=== PATIENT | male | born 1985 | race Caucasian/White ===

== ENCOUNTER 2023-01-24 05:18 | Emergency (ER) | payer BC, SELFPAY ==
--- NOTE | ~2023-01-24 | CT_ITS ---
EXAMINATION: CT abdomen pelvis wo con DATE: 01/24/2023 06:18 INDICATION: Flank pain. Nausea and vomiting. History kidney stones. TECHNIQUE: Computed tomography (CT) of the abdomen and pelvis was performed without intravenous contr ast. Automated exposure control and iterative reconstruction technique were employed. Exam dose: 187 0.21 mGy-cm total exam DLP. COMPARISON: None. FINDINGS: Minimal atelectasis in the lower lobes, right greater than left. Normal heart size. No pericardial or pleural effusion. The liver, gallbladder, bile ducts, spleen, pancreas, pancreatic duct, and adrenal glands are unremar kable. There is a nonobstructing pinpoint lower pole right renal calculus. There is an approximately 2.6 mm proximal right ureteral calculus with mild right hydroureteronephros is and minimal right peripelvic and proximal periureteral stranding. No other urinary tract calculus or hydroureteronephrosis. No renal mass lesion is evident on this limited noncontrast examination. The urinary bladder and pros antunez gland are unremarkable. Normal caliber of the abdominal aorta. No intraperitoneal or retroperitoneal or pelvic mass lesion or adenopathy or ascites is detected. Normal appendix. No bowel obstruction or free air. Small fat-containing left inguinal hernia. Small fat-containing umbilical hernia. Bilateral L3 pars interarticularis defects with associated grade 1 anterolisthesis at L3-4. Severe degenerative disc disease at L3-4. Moderately severe degenerative disc disease at L5-S1. No suspicious osteolytic or osteoblastic lesions. IMPRESSION: 2.6 mm proximal right ureteral calculus with mild right hydroureteronephrosis Pinpoint nonobstructing lower pole right renal calculus Normal appendix Bilateral L3 pars interarticularis defects with associated grade 1 anterolisthesis at L3-4 Severe degenerative disease at L3-4, moderately severe degenerative disc disease at L5-S1 Reviewed, dictated and finalized at [facility]. Reviewed, dictated and finalized at [facility]. IMPRESSION: 2.6 mm proximal right ureteral calculus with mild right hydrourete ronephrosis Pinpoint nonobstructing lower pole right renal calculus Normal appendix Bilateral L3 pars interarticularis defects with associated grade 1 anterolisthe sis at L3-4 Severe degenerative disease at L3-4, moderately severe degenerative disc diseas e at L5-S1
[2023-01-24 05:27] VITALS: BP 178/106; PULSE 64; RESP 18; TEMP 36.4; O2SAT 99
[2023-01-24] MEDS: ONDANSETRON INJ 4 MG/2 ML VIAL IV PUSH (05:51)
[2023-01-24] MEDS: SODIUM CHLORIDE 0.9% IV 1,000 ML 999 ML IV CONT (05:51)
[2023-01-24] MEDS: MORPHINE SULFATE (*CRX) 4 MG/ML INJ IV PUSH (05:52)
[2023-01-24 06:00] VITALS: BP 169/84; O2SAT 94
[2023-01-24 06:08] LABS: Basophils Absolute Auto 0.1 K/mm3 (0.0-0.1); Basophils Percent Auto 0.9 % (0.2-1.2); Eosinophils Absolute Auto 0.3 K/mm3 (0-0.3); Eosinophils Percent Auto 4.2 % (0-4.4); Hematocrit 45.5 % (42.0-52.0); Hemoglobin 15.9 g/dL (14.0-18.0); Immature Granulocyte Absolute 0.03 K/mm3 (0.00-0.031); Immature Granulocyte Percent A 0.4 % (0-0.5); Lymphocytes Absolute Auto 2.43 K/mm3 (0.9-3.2); Lymphocytes Percent Auto 32.9 % (18.3-44.2); Mean Corpuscular HGB Conc 34.9 g/dl (32-36); Mean Corpuscular Hemoglobin 31.4 pg (26-34); Mean Corpuscular Volume 89.9 fl (80-100); Mean Platelet Volume 10.3 fl (7.4-10.4); Monocytes Absolute Auto 0.7 K/mm3 (0.1-0.6); Monocytes Percent Auto 9.5 % (2.6-8.5); Neutrophils Absolute Auto 3.8 K/mm3 (1.3-6.7); Neutrophils Percent Auto 52.1 % (45.5-73.1); Platelet Count Result 302 k/mm3 (150-375); Red Blood Count 5.06 M/mm3 (4.6-6.20); Red Cell Distribution Width 12.4 % (11.5-14.5); White Blood Count 7.4 K/mm3 (4.5-10.0)
[2023-01-24 06:16] LABS: Alanine Aminotransferase 118 U/L (6-50); Albumin Level 4.9 g/dL (3.5-5.1); Alkaline Phosphatase 81 U/L (38-126); Anion Gap 9 mmol/L (8-16); Appearance Urine Clear (Clear); Aspartate Amino Transferase 65 U/L (17-59); Bacteria Urine None Seen /hpf; Bilirubin Urine Negative (Negative); Bilirubin,Total 0.9 mg/dL (0.2-1.3); Blood Urea Nitrogen 19 mg/dL (9-20); Blood Urine 3+ (Negative); Calcium 10.4 mg/dL (8.4-10.2); Carbon Dioxide 28 mmol/L (22-30); Chloride 102 mmol/L (98-107); Color Urine Dark Yellow (Yellow); Estimated CRCL calculation 133 ml/min; Estimated Glomerular Filt Rate > 60; Glucose 117 mg/dL (65-110); Glucose Urine UA Negative (Negative); Ketones Urine Trace mg/dL (Negative); Leukocyte Esterase Ur Trace LEU/UL (Negative); Lipase 119 U/L (23-300); Nitrate Urine Negative (Negative); Non Pathogenic Casts 0-2; Potassium 3.6 mmol/L (3.4-5.0); Protein Urine Trace mg/dL (Negative); RBC Urine >100 /hpf (0-2); Sodium 139 mmol/L (137-145); Specific Grav Ur 1.025 (1.001-1.035); Squamous Epithelial Cell Urine None seen /hpf (Few); pH Urine 5.5 (5.0-9.0)
--- NOTE | 2023-01-24 06:17 | ED.GENADULT ---
HPI - General Adult General Chief complaint: Urogenital-Male <Pj Coreas MD - Last Filed: 01/24/23 06:26> Stated complaint: Kidney stone? <Pj Coreas MD - Last Filed: 01/24/23 06:26> Time Seen by Provider: 01/24/23 05:40 <Pj Coreas MD - Last Filed: 01/24/23 06:26> History of Present Illness HPI narrative: Patient is a 37-year-old gentleman who presents the emergency department with chief complaint of right-sided flank pain. Patient reports that started having pain in the right flank area this evening reports it radiates to the right lower quadrant the patient reports the pain is sharp reports he is unable to get comfortable reports it feels similar to whenever he had a kidney stone before in the past. The previous kidney stones he did require surgical intervention to remove the stone patient denies fever chills <Pj Coreas MD - Last Filed: 01/24/23 06:26> Related Data Allergies/adverse reactions: Allergies Allergy/AdvReac Type Severity Reaction Status Date / Time Sulfa (Sulfonamide AdvReac Rash Verified 01/24/23 05:47 Antibiotics) <Pj Coreas MD - Last Filed: 01/24/23 06:26> Review of Systems Review of Systems: A 10 system review of systems was completed on the patient and is negative except for what is stated in the HPI. Nursing and ancillary documentation was reviewed. <Pj Coreas MD - Last Filed: 01/24/23 06:26> Exam Narrative: GENERAL: Well-appearing, well-nourished, and in no acute distress. HEAD: Normocephalic, atraumatic. EYES: PERRLA and EOMI. ENT: Nares clear, no rhinorrhea or epistaxis. Mucous membranes moist. NECK: Supple. CHEST: Clear to auscultation. No respiratory distress. HEART: Regular rate and rhythm. No murmur heard. Normal peripheral pulses. ABDOMEN: Soft, nontender, nondistended, normal active bowel sounds. EXTREMITIES: Normal range of motion. No edema. SKIN: Warm, dry, no rash. NEURO: No focal deficits. Alert and oriented x3. PSYCH: Normal mood and affect. <Pj Coreas MD - Last Filed: 01/24/23 06:26> Course Reevaluation(s) Reevaluation #1: Patient care was signed out to me by Dr. Coreas. Patient is a 37-year-old male presenting with right flank pain. Patient does have a prior history of kidney stone. At time of signout CT scan was pending. Patient was afebrile with no leukocytosis and a stable hemoglobin. Patient's chemistries had no significant abnormalities. UA did show greater than [address] scan did show a 2.7 cm stone in the proximal right ureter. On reevaluation patient is resting comfortably. Patient and family were updated of the results of the imaging and the plan for follow-up. All questions and concerns were addressed. <Manjeet Tavera MD - Last Filed: 01/24/23 18:06> Vital Signs Vital signs: Vital Signs Temperature 97.6 F 01/24/23 05:27 Pulse Rate 64 01/24/23 05:27 Respiratory Rate 18 01/24/23 05:27 Blood Pressure 178/106 H 01/24/23 05:27 Pulse Oximetry 99 01/24/23 05:27 Oxygen Delivery Room Air 01/24/23 05:27 Temperature 97.6 F 01/24/23 05:27 Pulse Rate 84 01/24/23 09:54 Respiratory Rate 19 01/24/23 09:54 Blood Pressure 131/58 L 01/24/23 09:54 Pulse Oximetry 97 01/24/23 09:54 Oxygen Delivery Room Air 01/24/23 05:27 <Pj Coreas MD - Last Filed: 01/24/23 06:26> Vital Signs Temperature 97.6 F 01/24/23 05:27 Pulse Rate 64 01/24/23 05:27 Respiratory Rate 18 01/24/23 05:27 Blood Pressure 178/106 H 01/24/23 05:27 Pulse Oximetry 99 01/24/23 05:27 Oxygen Delivery Room Air 01/24/23 05:27 Temperature 97.6 F 01/24/23 05:27 Pulse Rate 84 01/24/23 09:54 Respiratory Rate 19 01/24/23 09:54 Blood Pressure 131/58 L 01/24/23 09:54 Pulse Oximetry 97 01/24/23 09:54 Oxygen Delivery Room Air 01/24/23 05:27
[2023-01-24 06:21] LABS: Add Urine Microscopic? YES
[2023-01-24] MEDS: PROCHLORPERAZINE EDISYLATE 10 MG/2 ML VIAL IV PUSH (06:39)
[2023-01-24] MEDS: HYDROmorphone HCL INJ (*CRX) 1 MG/ML SYR IV PUSH (06:45)
--- NOTE | 2023-01-24 06:51 | PC.NURSE ---
Pt used the call light to notify nurse of increased pain and increase in vomiting. EDP was notified and antiemetic and Dilaudid was given.
[2023-01-24 07:39] VITALS: BP 168/101; PULSE 60; RESP 19; O2SAT 93
[2023-01-24 07:40] VITALS: BP 168/101; O2SAT 92
[2023-01-24 09:54] VITALS: BP 131/58; PULSE 84; RESP 19; O2SAT 97
== END 2023-01-24 09:45 | disposition home or self-care (01) ==
PROVIDERS: Emergency Provider Emergency Medicine
DX: N13.2 Hydronephrosis with renal and ureteral calculous obstruction (principal)
CPT/HCPCS: 36415; 74176; 80053; 81001; 83690; 85025; 87086; 87088; 96361; 96374; 96375; 99284; J0780; J1170; J2270; J2405; J7030